=== PATIENT | male | born 2005 | race Caucasian/White ===

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

== ENCOUNTER 2023-05-13 17:59 | Emergency (ER) | payer OTHER ==
[~2023-05-13] VITALS: Ht 172.7 cm; Wt 99.8 kg
[~2023-05-13 17:59] MED LIST changes: +Amoxicillin875 MG PO
[2023-05-13 18:06] VITALS: BP 139/84
== END 2023-05-13 18:28 | disposition home or self-care (01) ==
LOC: ER 17:59
DX: T14.8XXA Other injury of unspecified body region, initial encounter (principal); V49.9XXA Car occupant (driver) (passenger) injured in unspecified traffic accident, initial encounter; F17.210 Nicotine dependence, cigarettes, uncomplicated
CPT/HCPCS: 99283